=== PATIENT | male | born 1960 | race Caucasian/White ===

== ENCOUNTER 2019-05-17 14:48 | Emergency (ER) | payer MEDICARE, MEDICAID ==
[~2019-05-17] VITALS: Ht 177.8 cm; Wt 159.0 kg
[~2019-05-17 14:48] MED LIST: ASPI-4 PO; CARV12.5 PO; CHOL10002 PO; CYAN100019 PO; EPIN0.3P8 IM; FLUT100D2 INH; FURO40TA4 PO; INSU100V36 SQ; LANTUS SQ; LISI-600 PO; METF-436 PO; METO-292 PO; METO5TAB98 PO; MULT-785 PO; OMEG1CAP54 PO; POTA20LI5 PO; SIMV20TA PO; TRIA15CR61 TP; ZOLP5TAB2 PO
--- NOTE | 2019-05-17 15:25 | NUR ---
pt refused wrist brace, he has one at home
[2019-05-17 15:40] VITALS: BP 144/74
[2019-05-17] MEDS ORDERED: TRAM50TA2 PO ×2 (15:47→16:01)
== END 2019-05-17 16:14 | disposition home or self-care (01) ==
LOC: ER 14:48
DX: M65.4 Radial styloid tenosynovitis [de Quervain] (principal); I48.91 Unspecified atrial fibrillation; I25.10 Atherosclerotic heart disease of native coronary artery without angina pectoris; I25.2 Old myocardial infarction; E11.9 Type 2 diabetes mellitus without complications; F32.9 Major depressive disorder, single episode, unspecified; F12.90 Cannabis use, unspecified, uncomplicated; Z98.61 Coronary angioplasty status; Z90.49 Acquired absence of other specified parts of digestive tract; Z95.1 Presence of aortocoronary bypass graft; Z95.0 Presence of cardiac pacemaker; Z56.0 Unemployment, unspecified; Z79.82 Long term (current) use of aspirin; Z79.4 Long term (current) use of insulin; Z79.899 Other long term (current) drug therapy
CPT/HCPCS: 29125; 73110; 99283

== ENCOUNTER 2020-01-16 08:22 | Day surgery (SDC) | payer MEDICARE, MEDICAID ==
[~2020-01-16] VITALS: Ht 177.8 cm; Wt 167.7 kg
[2020-01-16 08:35] VITALS: BP 134/68
[2020-01-16] MEDS ORDERED: fentaNYL/PF 50MCG/1 ML 2ML syringe ONE (08:43)
[2020-01-16] MEDS ORDERED: MIDAZolam 5mg/5ml vial ONE (08:43)
[2020-01-16] MEDS ORDERED: LANTUS SQ (09:31)
[2020-01-16] MEDS ORDERED: SIMV40TA PO (09:32)
[2020-01-16] MEDS ORDERED: WARF5TAB2 PO (09:34)
[2020-01-16] MEDS ORDERED: SACU1TAB7 PO (09:34)
[2020-01-16] MEDS ORDERED: SPIR25TA5 PO (09:35)
[2020-01-16] MEDS ORDERED: lovenox SQ (09:37)
[2020-01-16 11:20] VITALS: BP 137/61
[2020-01-16 11:30] VITALS: BP 117/51
[2020-01-16 11:40] VITALS: BP 123/66
[2020-01-16 11:50] VITALS: BP 120/52
== END 2020-01-16 12:00 | disposition home or self-care (01) ==
LOC: GI LAB 08:22
PROVIDERS: ATTEND Internal Medicine Gastroenterology
DX: Z12.11 Encounter for screening for malignant neoplasm of colon (principal); D12.3 Benign neoplasm of transverse colon; K62.1 Rectal polyp; K64.8 Other hemorrhoids; E66.9 Obesity, unspecified; Z68.43 Body mass index [BMI] 50.0-59.9, adult; Z86.010 Personal history of colon polyps; Z79.899 Other long term (current) drug therapy
CPT/HCPCS: 45380; 45385; 82948; 99153; C1773; G0500; J2250; J3010; J7040; 88305; 99152; A4620

== ENCOUNTER 2020-06-14 07:50 | Emergency (ER) | payer MEDICARE, MEDICAID ==
[~2020-06-14] VITALS: Ht 177.8 cm; Wt 163.6 kg
[~2020-06-14 07:50] MED LIST changes: -ASPI-4 PO; -FURO40TA4 PO; -LISI-600 PO; -METO-292 PO; -METO5TAB98 PO; +SACU1TAB7 PO; +SIMV40TA PO; +SPIR25TA5 PO; +WARF5TAB2 PO; +lovenox SQ
[2020-06-14 07:56] VITALS: BP 182/86
[2020-06-14] MEDS ORDERED: ketorolac trometh inj. 60 MG/2 ML VIAL IM ONE (09:15)
[2020-06-14] MEDS ORDERED: TRAM50TA2 PO (09:15)
== END 2020-06-14 09:48 | disposition home or self-care (01) ==
LOC: ER 07:51
DX: M25.572 Pain in left ankle and joints of left foot (principal); I48.91 Unspecified atrial fibrillation; I25.10 Atherosclerotic heart disease of native coronary artery without angina pectoris; I50.9 Heart failure, unspecified; I25.2 Old myocardial infarction; E11.9 Type 2 diabetes mellitus without complications; F32.9 Major depressive disorder, single episode, unspecified; F12.90 Cannabis use, unspecified, uncomplicated; Z90.89 Acquired absence of other organs; Z95.0 Presence of cardiac pacemaker; Z98.890 Other specified postprocedural states; Z56.0 Unemployment, unspecified; Z79.4 Long term (current) use of insulin; Z79.899 Other long term (current) drug therapy
CPT/HCPCS: 73610; 73630; 96372; 99284; J1885

== ENCOUNTER 2021-02-17 08:59 | Emergency (ER) | payer MEDICARE, MEDICAID ==
[~2021-02-17] VITALS: Ht 177.8 cm; Wt 159.0 kg
[2021-02-17 10:10] LABS: BASOPHILS % (AUTO) 0.4 % (0-1); EOSINOPHILS % (AUTO) 0.1 % (0-6); HEMOGLOBIN 12.2 g/dl (14.0-17.9); LYMPHOCYTES % (AUTO) 14.7 % (21-51); MEAN CORPUSCULAR HEMOGLOBIN 30.4 PG (27.0-31.0); MEAN CORPUSCULAR HGB CONC 32.9 g/dL (33.0-36.5); MEAN CORPUSCULAR VOLUME 92.4 FL (78-98); MEAN PLATELET VOLUME 7.8 FL (7.4-10.4); MONOCYTES % (AUTO) 14.9 % (2-12); NEUTROPHILS # (AUTO) 4.8 X10'3 (1.8-7.7); NEUTROPHILS % (AUTO) 69.9 % (42-75); PLATELET COUNT 188 X10'3 (140-440); RED BLOOD COUNT 4.01 X10'6 (4.70-6.10); RED CELL DISTRIBUTION WIDTH 15.3 % (11.5-14.5); WHITE BLOOD COUNT 6.8 X10'3 (4.5-11.0)
[2021-02-17 10:25] LABS: ALANINE AMINOTRANSFERASE 30 U/L (12-78); ALBUMIN 3.2 G/DL (3.4-5.0); ALKALINE PHOSPHATASE 68 IU/L (46-116); ANION GAP 8 (8-16); ASPARTATE AMINO TRANSFERASE 33 U/L (10-37); BILIRUBIN,TOTAL 0.5 MG/DL (0.1-1.0); BLOOD UREA NITROGEN 14 MG/DL (7-18); CALCIUM 8.8 MG/DL (8.5-10.1); CHLORIDE 99 MMOL/L (99-107); GLUCOSE 303 MG/DL (70-104); LIPASE < 50 U/L (73-393); POTASSIUM 4.6 MMOL/L (3.5-5.1); SODIUM 134 MMOL/L (135-145); TOTAL CARBON DIOXIDE 26.8 MMOL/L (24-32)
[2021-02-17 10:52] LABS: ALBUMIN/GLOBULIN RATIO 0.7 (1.1-1.5); BUN/CREATININE RATIO 15.2 (5.4-32.0); CREATININE 0.92 MG/DL (0.60-1.10); TOTAL PROTEIN 7.8 G/DL (6.4-8.2); eGFR 83 ML/MIN
[2021-02-17] MEDS ORDERED: OMEP40CA21 PO (12:34)
[2021-02-17] MEDS ORDERED: WARF1TAB83 PO (12:50)
[2021-02-17] MEDS ORDERED: ZOLP5TAB8 PO (12:50)
[2021-02-17] MEDS ORDERED: EMTR1TAB15 PO (12:54)
[2021-02-17] MEDS ORDERED: ONDA4TAB6 PO (12:57)
[2021-02-17 12:58] VITALS: BP 135/59
== END 2021-02-17 12:59 | disposition home or self-care (01) ==
LOC: ER 08:59
DX: R10.13 Epigastric pain (principal); D64.9 Anemia, unspecified; R11.2 Nausea with vomiting, unspecified; K59.00 Constipation, unspecified; I48.91 Unspecified atrial fibrillation; I25.10 Atherosclerotic heart disease of native coronary artery without angina pectoris; I50.9 Heart failure, unspecified; I25.2 Old myocardial infarction; E11.9 Type 2 diabetes mellitus without complications; F32.9 Major depressive disorder, single episode, unspecified; F12.90 Cannabis use, unspecified, uncomplicated; Z90.89 Acquired absence of other organs; Z95.0 Presence of cardiac pacemaker; Z98.890 Other specified postprocedural states; Z56.0 Unemployment, unspecified; Z79.4 Long term (current) use of insulin; Z79.899 Other long term (current) drug therapy
CPT/HCPCS: 36415; 80053; 83690; 85025; 93005; 99284

== ENCOUNTER 2021-03-25 12:29 | Emergency (ER) | payer MEDICARE, MEDICAID ==
[~2021-03-25] VITALS: Ht 177.8 cm; Wt 150.0 kg
[~2021-03-25 12:29] MED LIST changes: +EMTR1TAB15 PO; +ONDA4TAB6 PO; +WARF1TAB83 PO; +ZOLP5TAB8 PO
[2021-03-25 13:27] LABS: BASOPHILS % (AUTO) 0.4 % (0-1); EOSINOPHILS % (AUTO) 0.2 % (0-6); HEMATOCRIT 36.6 % (42.0-52.0); HEMOGLOBIN 11.9 g/dl (14.0-17.9); LYMPHOCYTES # (AUTO) 1.2 X10'3 (1.1-4.8); LYMPHOCYTES % (AUTO) 15.9 % (21-51); MEAN CORPUSCULAR HEMOGLOBIN 28.9 PG (27.0-31.0); MEAN CORPUSCULAR HGB CONC 32.4 g/dL (33.0-36.5); MEAN CORPUSCULAR VOLUME 89.1 FL (78-98); MEAN PLATELET VOLUME 7.9 FL (7.4-10.4); NEUTROPHILS # (AUTO) 5.1 X10'3 (1.8-7.7); NEUTROPHILS % (AUTO) 69.5 % (42-75); PLATELET COUNT 232 X10'3 (140-440); RED BLOOD COUNT 4.11 X10'6 (4.70-6.10); RED CELL DISTRIBUTION WIDTH 15.1 % (11.5-14.5); WHITE BLOOD COUNT 7.4 X10'3 (4.5-11.0)
[2021-03-25 13:43] LABS: ALANINE AMINOTRANSFERASE 88 U/L (12-78); ALBUMIN 2.7 G/DL (3.4-5.0); ALBUMIN/GLOBULIN RATIO 0.6 (1.1-1.5); ALKALINE PHOSPHATASE 166 IU/L (46-116); ANION GAP 7 (8-16); ASPARTATE AMINO TRANSFERASE 67 U/L (10-37); BILIRUBIN,TOTAL 0.6 MG/DL (0.1-1.0); BLOOD UREA NITROGEN 12 MG/DL (7-18); BUN/CREATININE RATIO 13.3 (5.4-32.0); CALCIUM 9.4 MG/DL (8.5-10.1); CHLORIDE 100 MMOL/L (99-107); GLUCOSE 338 MG/DL (70-104); LIPASE < 50 U/L (73-393); POTASSIUM 4.8 MMOL/L (3.5-5.1); SODIUM 134 MMOL/L (135-145); TOTAL CARBON DIOXIDE 27.1 MMOL/L (24-32); TOTAL PROTEIN 7.6 G/DL (6.4-8.2); eGFR 86 ML/MIN
--- NOTE | 2021-03-25 15:00 | NUR ---
AT BEDSIDE,PT STATED THAT HE IS GOING TO URINATE IN FEW MINS.
[2021-03-25] MEDS ORDERED: LACT10SO3 PO (15:28)
[2021-03-25 16:41] VITALS: BP 140/60
[2021-03-25 16:43] LABS: CLARITY,URINE CLEAR (Clear); COLOR,URINE YELLOW (Yellow); GLUCOSE, URINE 100 mg/dl (Neg); KETONES,URINE TRACE mg/dl (Neg); LEUKOCYTE ESTERASE ,URINE NEGATIVE (Neg); NITRITES, URINE NEGATIVE (Neg); OCCULT BLOOD,URINE NEGATIVE (Neg); PROTEIN,URINE TRACE mg/dl (Neg)
[2021-03-25 16:59] LABS: UA COLLECTION TYPE VOIDED
[2021-03-25 17:02] LABS: BACTERIA,URINE NONE SEEN /HPF (Neg); HYALINE CASTS 0-3 /LPF (NEGATIVE); MUCUS STRANDS MODERATE /LPF (Neg); RBC,URINE 0-2 /HPF (0-2); SQUAMOUS EPITHELIAL CELL,UR FEW /LPF (FEW); WBC,URINE 0-4 /HPF (0-4)
== END 2021-03-25 17:45 | disposition home or self-care (01) ==
LOC: ER 12:29
DX: E11.65 Type 2 diabetes mellitus with hyperglycemia (principal); R10.84 Generalized abdominal pain; R11.10 Vomiting, unspecified; I48.91 Unspecified atrial fibrillation; I25.10 Atherosclerotic heart disease of native coronary artery without angina pectoris; I50.9 Heart failure, unspecified; I25.2 Old myocardial infarction; F32.9 Major depressive disorder, single episode, unspecified; F12.90 Cannabis use, unspecified, uncomplicated; Z90.89 Acquired absence of other organs; Z95.0 Presence of cardiac pacemaker; Z98.890 Other specified postprocedural states; Z56.0 Unemployment, unspecified; Z79.4 Long term (current) use of insulin; Z79.899 Other long term (current) drug therapy
CPT/HCPCS: 36415; 80053; 81001; 83690; 85025; 99283